=== PATIENT | female | born 1995 | race African-American/Black ===

== ENCOUNTER 2023-03-17 06:20 | Inpatient (IN) | payer OTHER, SELFPAY ==
[2023-03-17] VITALS (17 sets, daily range): BP systolic 119–164; BP diastolic 49–81; PULSE 49–63; RESP 16–18; TEMP 36.4–37.5; O2SAT 100; BMI 27.2
--- NOTE | 2023-03-17 06:49 | LDADM ---
This patient, Rosa Maria Bui, was admitted to Labor/Delivery/Recovery 106 on 03/17/23 at 06:20. Plans for labor, pain management and were discussed with patient. Patient/family oriented to hospital policies and general routines including ID bracelet, bed and alarms, visiting hours, pain management, procedures, bathroom and other care routines, personal items, smoking policy, room service/diet and guest tray routines, security routines, and visiting hours. Patient/Family are encouraged to report perceived risks to care and to ask questions if they do not understand what they are told or what they should do. See OBIX for further documentation.
[2023-03-17] MEDS: LACTATED RINGERS 1,000 ML 125 ML IV CONT (06:52)
[2023-03-17 06:54] LABS: Basophils Percent Auto 0.5 % (0.2-1.2); Eosinophils Percent Auto 0.2 % (0-4.4); Hematocrit 32.2 % (37.0-47.0); Hemoglobin 10.5 g/dL (12.0-15.0); Immature Granulocyte Absolute 0.01 K/mm3 (0.00-0.031); Immature Granulocyte Percent A 0.2 % (0-0.5); Lymphocytes Absolute Auto 1.46 K/mm3 (0.9-3.2); Lymphocytes Percent Auto 25.3 % (18.3-44.2); Mean Corpuscular HGB Conc 32.6 g/dl (32-36); Mean Corpuscular Hemoglobin 27.6 pg (26-34); Mean Corpuscular Volume 84.5 fl (80-100); Mean Platelet Volume 10.7 fl (7.4-10.4); Monocytes Absolute Auto 0.5 K/mm3 (0.1-0.6); Monocytes Percent Auto 8.8 % (2.6-8.5); Neutrophils Absolute Auto 3.8 K/mm3 (1.3-6.7); Platelet Count Result 237 k/mm3 (150-375); Red Blood Count 3.81 M/mm3 (4.2-5.4); Red Cell Distribution Width 13.8 % (11.5-14.5); White Blood Count 5.8 K/mm3 (4.5-10.0)
[2023-03-17] MEDS: OXYTOCIN 30 UNITS/NS 500 ML 30 UNITS/500 ML BAG 999 UNITS IV CONT (07:31)
--- NOTE | 2023-03-17 08:03 | PM.OBPRVD ---
OB - Delivery Note Procedure Delivery date: 03/17/23 Procedure: Induction method: None Delivery monitor: External FHT and External Uterine Route of delivery: Episiotomy description: None Quantitative Blood Loss (ml): 75 Anesthesia type: None Disposition: Floor Iron Station Baby Date of : 03/17/23 Time of : 07:26 Weeks of gestation at delivery: 38 Weight (pounds): 6 Weight (ounces): 13 Placenta delivery description: Spontaneous Cord Vessel Description: 3 Vessels score one minute: 8 score five minutes: 8
[2023-03-17] MEDS: OXYTOCIN 30 UNITS/NS 500 ML 30 UNITS/500 ML BAG 125 UNITS IV CONT (08:05)
[2023-03-17] MEDS: ACETAMINOPHEN 325 MG TABLET 650 MG PO ×2 (09:35→23:47)
[2023-03-17 09:51] LABS: Rapid Plasma Reagin Non-Reactive (NonReactive)
[2023-03-17] MEDS: MULTIVIT/MIN/PREN/FOL AC/IRON TABLET 1 TAB PO (10:00)
[2023-03-17] MEDS: IBUPROFEN 600 MG TABLET PO (19:19)
[2023-03-18 06:02] LABS: Hemoglobin 8.8 g/dL (12.0-15.0)
--- NOTE | 2023-03-18 07:31 | PM.OBPNVD ---
OB - PN: Subj Subjective Date/time seen: 03/18/23 07:31 Patient comments: no complaints and pain well controlled baby status: doing well and bottle feeding well OB - PN: Obj Data Labs 03/18/23 04:22 Labs: Laboratory Results - last 24 hr 03/17/23 03/18/23 06:47 04:22 Hgb 8.8 L Hct 27.0 L RPR Non-reactive Blood Type O Positive Antibody Screen Negative OB - PN A/P Plan day: 1 Plan: routine care Comments: tc x1 today home tomorrow Time Spent With Patient Time: Total time spent is greater than 50% in coordination of care (as documented) at patient's floor/unit and/or counseling patient: Time with patient: less than 15 minutes Exam Narrative: NAD abdomen soft, nontender, fundus firm below the umbilicus Extremities nontender, 1+ edema
[2023-03-18 08:05] VITALS: BP 137/73; PULSE 57; RESP 18; TEMP 36.9; O2SAT 100
[2023-03-18] MEDS: ACETAMINOPHEN 325 MG TABLET 650 MG PO ×2 (09:15→18:18)
[2023-03-18] MEDS: MULTIVIT/MIN/PREN/FOL AC/IRON TABLET 1 TAB PO (09:30)
[2023-03-18] MEDS: POLYSACCHARIDE IRON COMPLEX 150 MG CAPSULE PO (09:30)
[2023-03-18] MEDS: DOCUSATE SODIUM 100 MG CAPSULE PO (09:30)
[2023-03-18 18:20] VITALS: BP 123/65; PULSE 61; RESP 16; TEMP 37.1
[2023-03-19] MEDS: ACETAMINOPHEN 325 MG TABLET 650 MG PO (07:53)
[2023-03-19] MEDS: DOCUSATE SODIUM 100 MG CAPSULE PO (07:53)
[2023-03-19] MEDS: POLYSACCHARIDE IRON COMPLEX 150 MG CAPSULE PO (07:53)
[2023-03-19 07:55] VITALS: BP 135/78; PULSE 55; RESP 16; TEMP 36.7; O2SAT 100
--- NOTE | 2023-03-19 08:20 | PM.OBPNVD ---
OB - PN: Subj Subjective Date/time seen: 03/19/23 08:20 Patient comments: no complaints, pain well controlled and tolerating diet OB - PN: Obj Data Labs 03/18/23 04:22 OB - PN A/P Plan day: 2 Plan: routine care and discharge home Time Spent With Patient Time: Total time spent is greater than 50% in coordination of care (as documented) at patient's floor/unit and/or counseling patient: Exam Const: General: comfortable and no acute distress Resp: Effort & Inspection: normal respiratory effort Auscultation: no rales, no rhonchi and no wheezes Cardio: Rate: regular rate Heart sounds: no click, no murmurs and no rubs GI: GI Palp: Yes Soft to palpation and No Tenderness to palpation present (GI) Auscultation: normal bowel sounds Extrem: General: normal to inspection, no pedal edema and no calf tenderness
--- NOTE | 2023-03-19 08:21 | P.DS_ITS ---
DS: Admitting Diagnosis Discharge Date 03/19/2023 Admitting Diagnosis term DS: Discharge Diagnosis Discharge Diagnosis (1) Term delivered: Code(s): O80 - Encounter for full-term uncomplicated delivery Status: Acute OB - DS: Summary OB Procedures : None OB Procedures Intrapartum: Spontaneous Vag Delivery OB Procedures: : None Time Spent with Patient Time attestation: Total time spent providing and/or coordinating discharge services: Discharge Plan Discharge Discharging Clinician: Thierno Yo Patient Disposition: Home, Self-Care Activity: pelvic rest Diet: regular Patient Instructions: Antibiotic Form Stand Alone Forms: General Discharge Information Follow-up/Referrals: Thierno Yo MD [Physician] - Date of admission: 03/17/23 06:20 Primary Care Provider: PHYSICIAN,ELECTROSTATIC POWDER COATING TECHNICIAN Admitting Provider: Akosua Sommers Attending physician on admission: Akosua Sommers Condition: Stable
--- NOTE | 2023-03-19 10:31 | PC.NURSE ---
Patient viewed the discharge video Mother & Baby Care, The First Two Weeks . Patient was given the opportunity and encouraged to ask questions. Patient verbalized understanding of information shared and has been given the mother/baby guide for home reference.
[2023-03-21 10:30] VITALS: BP 140/82; PULSE 61; RESP 18; TEMP 36.7; O2SAT 100
== END 2023-03-19 15:25 | disposition home or self-care (01) | DRG 560 ==
LOC: ANHLDR 06:34 → ANHOB2 03-19 08:22 → ANHLDR 03-22 08:38 → ANHOB2 03-22 08:38
PROVIDERS: Admitting Provider Obstetrics & Gynecology; Visit Provider Obstetrics & Gynecology
DX: O80 Encounter for full-term uncomplicated delivery (principal); Z37.0 Single live birth; Z3A.38 38 weeks gestation of pregnancy
CPT/HCPCS: 36415; 85014; 85018; 85025; 86592; 86850; 86900; 86901; A9270; J1756; J2590; J7120